=== PATIENT | female | born 1960 | race Caucasian/White ===

== ENCOUNTER → 2016-04-15 | Outpatient (CLI) | payer OTHER ==
[~2016-04-15] MED LIST: ADVIN25/60 INH; ALBUAER2 INH; BENZ100C18 PO; BENZ100C7 PO; LOSA100T65 PO; MULT-513 PO; OXYC1TAB3 PO; PRED20TA PO; PRED50TA PO; SNG10 PO; VNTHFA/IN INH
--- NOTE | 2016-04-15 14:36 | DIAGNOSTIC IMAGING REPORT ---
CHEST 2 VIEWS ROUTINE CLINICAL HISTORY: Pulmonary nodule COMPARISON STUDY: 02/01/2016 FINDINGS: The cardiac and mediastinal contours are normal. There is no evidence of focal pulmonary consolidation. There is no evidence of failure. No pleural effusions are visualized.[ The pulmonary nodules described on the prior CT scan are not visible on conventional radiographic imaging. IMPRESSION: No active disease in the chest. Electronically signed by: Marcello Basurto M.D. 04/15/2016 2:34 PM
== END | disposition home or self-care (01) ==
LOC: C.RAD 13:37
PROVIDERS: ATTEND Internal Medicine
DX: R91.1 Solitary pulmonary nodule (principal)

== ENCOUNTER 2016-12-17 17:45 | Emergency (ER) | payer OTHER ==
[~2016-12-17] VITALS: Ht 160 cm; Wt 98.9 kg
[~2016-12-17 17:45] MED LIST changes: -BENZ100C18 PO; -MULT-513 PO; -OXYC1TAB3 PO; -PRED20TA PO; -PRED50TA PO; -VNTHFA/IN INH
[2016-12-17 17:48] VITALS: TEMP 36.7; Ht 160 cm; Wt 98.9 kg
[2016-12-17] MEDS ORDERED: ALBUT/IPRATROP 3MG/0.5MG NEB 3 ML VIAL INH STA (17:54)
--- NOTE | 2016-12-17 18:14 | EMERGENCY ROOM VISIT NOTE ---
History First contact with patient: 17:54 Chief Complaint: SHORTNESS OF BREATH Stated Complaint: HARD TIME BREATHING History of Present Illness The patient is a 56 year old female who presents to the Emergency Room with complaints of shortness of breath and cough. Non productive cough for last 2 weeks, worse with lying flat. Tried using Vicks but appears to have made things worse. Taking Aleve without relief. Using albuterol 2puffs every 2 hours, doesn' t appear to be helping. Daughter is also sick with pneumonia. Chest pain (on her ribs) just during coughing spells. No recent plan, train or car journeys. Review of Systems see below Constitutional: + fever, + chills, + sweats (chornic night time), No weight loss Eyes: No worsening of vision Respiratory: No cough Cardiovascular: + chest pain (during couhging only), + orthopnea (coughing just during this episode), No PND, No edema, No claudication Abdomen: No pain, No nausea, No vomiting, No diarrhea, No constipation, No GI bleeding Musculoskeletal: No joint pain, No muscle pain, No swelling, No calf pain Genitourinary - Female: + dysuria (burning yesterday), No urinary frequency , No urinary urgency, No urinary incontinence, No urinary retention Hematologic / Lymphatic: No abnormal bleeding/bruising Integumentary: No rash, No itch Past Medical/Surgical History Medical Problems: (1) Bronchitis (2) Diverticulosis Colon (W/O Ment Of Hemorrhage) (3) Hypertension (4) Hypertension Nos (5) Obesity, Nos (6) Tobacco Use Disorder Family History Diabetes mellitus FH: heart disease FHx: cancer FHx: gallbladder disease Hypertension Kidney disease Kidney stones Social History Smoking Status: Current Every Day Smoker (2 pack/day) Alcohol Use: none Drug Use: none Marital Status: Occupation Status: employed Current/Historical Medications Scheduled Benzonatate (Tessalon Perles), 100 MG PO TID Fluticasone Prop/Salmeterol (Advair Diskus 250/50 60 Dose), 1 PUFF INH BID Losartan Potassium (Cozaar), 100 MG PO QAM Montelukast Sod (Montelukast Sodium), 10 MG PO QPM Multivitamins/Minerals (Mvi With Minerals), 1 TAB PO DAILY Prednisone (Prednisone), 50 MG PO DAILY Scheduled PRN Albuterol Hfa (Ventolin Hfa), 2 PUFFS INH Q4 PRN for SOB/Wheezing Benzonatate (Benzonatate), 100-200 MG PO Q4H PRN for Cough Physical Exam Vital Signs Date Time Temp Pulse Resp B/P (MAP) Pulse Ox O2 Delivery O2 Flow Rate FiO2 12/17/16 20:06 177/100 12/17/16 19:07 82 20 149/90 94 12/17/16 18:45 Room Air 12/17/16 17:48 36.7 88 22 194/96 96 Room Air Physical Exam GENERAL: Awake, alert, well-appearing, in moderate distress due to severe coughing. HENT: Normocephalic, atraumatic. Oropharynx unremarkable. EYES: Normal conjunctiva. Sclera non-icteric. NECK: Supple. No nuchal rigidity. FROM. No JVD. RESPIRATORY: Clear to auscultation. Decreased breath sounds bilaterally. CARDIAC: Regular rate, normal rhythm. Extremities warm and well perfused. Pulses equal. ABDOMEN: Soft, non-distended. No tenderness to palpation. No rebound or guarding. No masses. MUSCULOSKELETAL: Chest examination reveals no tenderness. The back is symmetrical on inspection without obvious abnormality. There is no CVA tenderness to palpation. No joint edema. LOWER EXTREMITIES: Calves are equal size bilaterally and non-tender. No edema. No discoloration. NEURO: Normal sensorium. No sensory or motor deficits noted. Medical Decision & Procedures ER Provider Diagnostic Interpretation: CHEST ONE VIEW PORTABLE HISTORY: shortness of breath COMPARISON: Chest 04/15/2016. FINDINGS: The lungs are clear. Cardiac silhouette is normal in size. No pleural effusions. No pneumothorax. IMPRESSION: No acute process. Laboratory Results 12/17/16 18:27 Red Blood Count 4.88, Mean Corpuscular Volume 87.9, Mean Corpuscular Hemoglobin 30.5, Mean Corpuscular Hemoglobin Concent 34.7, Mean Platelet Volume 10.9, Neutrophils (%) (Auto) 49.0, Lymphocytes (%) (Auto) 44.0, Monocytes (%) (Auto) 5.1, Eosinophils (%) (Auto) 1.4, Basophils (%) (Auto) 0.4, Neutrophils # (Auto) 3.58, Lymphocytes # (Auto) 3.22, Monocytes # (Auto) 0.37, Eosinophils # (Auto) 0.10, Basophils # (Auto) 0.03 12/17/16 18:27 Test 12/17/16 18:27 White Blood Count 7.31 K/uL (4.8-10.8) Red Blood Count 4.88 M/uL (4.2-5.4) Hemoglobin 14.9 g/dL (12.0-16.0) Hematocrit 42.9 % (37-47) Mean Corpuscular Volume 87.9 fL (80-100) Mean Corpuscular Hemoglobin 30.5 pg (25-34) Mean Corpuscular Hemoglobin Concent 34.7 g/dl (32-36) Platelet Count 194 K/uL (130-400) Mean Platelet Volume 10.9 fL (7.4-10.4) Neutrophils (%) (Auto) 49.0 % Lymphocytes (%) (Auto) 44.0 % Monocytes (%) (Auto) 5.1 % Eosinophils (%) (Auto) 1.4 % Basophils (%) (Auto) 0.4 % Neutrophils # (Auto) 3.58 K/uL (1.4-6.5) Lymphocytes # (Auto) 3.22 K/uL (1.2-3.4) Monocytes # (Auto) 0.37 K/uL (0.11-0.59) Eosinophils # (Auto) 0.10 K/uL (0-0.5) Basophils # (Auto) 0.03 K/uL (0-0.2) RDW Standard Deviation 44.7 fL (36.4-46.3) RDW Coefficient of Variation 13.9 % (11.5-14.5) Immature Granulocyte % (Auto) 0.1 % Immature Granulocyte # (Auto) 0.01 K/uL (0.00-0.02) D-Dimer 490 ug/L FEU (0-500) Anion Gap 5.0 mmol/L (3-11) Est Creatinine Clear Calc Drug Dose 81.9 ml/min Estimated GFR () 87.5 Estimated GFR (Non- 75.5 BUN/Creatinine Ratio 10.3 (10-20) Calcium Level 9.0 mg/dl (8.5-10.1) Troponin I < 0.015 ng/ml (0-0.045) Medications Administered Medications (Trade) Dose Ordered Sig/Jocelin Route Start Time Stop Time Status Last Admin Dose Admin Albuterol/ Ipratropium (Duoneb) 3 ml ONE STAT INH 12/17/16 17:54 12/17/16 17:57 DC 12/17/16 18:18 3 ML Albuterol Sulfate (Ventolin 0.083% 2.5MG/3ML Neb) 2.5 mg NOW STAT INH 12/17/16 18:41 12/17/16 18:43 DC 12/17/16 18:57 2.5 MG Prednisone (PredniSONE TAB) 40 mg NOW STAT PO 12/17/16 18:59 12/17/16 19:01 DC 12/17/16 19:10 40 MG Benzonatate (Tessalon Perles Cap) 100 mg NOW ONCE PO 12/17/16 19:15 12/17/16 19:16 DC 12/17/16 19:09 100 MG Hydrocodone Bit/ Homatropine Methylb (Hycodan Syrup) 5 ml NOW STAT PO 12/17/16 19:03 12/17/16 19:04 DC 12/17/16 19:09 5 ML ED Course 1800: full history and physical obtained by myself and Dr. sage 182: Discussed the case with dr. tatum who obtained his own h&p 190: reassessed by dr. sage 2014: patient ready to depart and cleared for discharge Medical Decision Prior records/ancillary studies reviewed. Triage Nursing notes reviewed. Additional history obtained from the family. The patient's history was concerning for respiratory difficulties. Differential diagnosis: Etiologies such as infections, reactive airway disease, pneumonia, pneumothorax , COPD, CHF, cardiac ischemia, pulmonary embolism, musculoskeletal, gastrointestinal, as well as others were entertained. Physical examination: As above. ER treatment provided: Duoneb x 2, prednisone 40 mg On reassessment the patient felt better. Diagnostic interpretation by me: The electrocardiogram was negative for acute ischemic or pathologic change. The labs revealed nothing abnormal aside from mildly decreased potassium of 3.1 Imaging studies: Chest x-ray as above, nothing abnormal detected. This appears to be consistent with exacerbation of asthma. By the evaluation outlined above emergent etiologies such as CHF, cardiac ischemia, pulmonary embolism, reactive airway disease, pneumonia, pneumothorax, musculoskeletal, serious bacterial infections, as well as others were deemed relatively unlikely. The patient and family were informed about the findings as listed above. All questions were answered and they are pleased with the treatment. Return instructions were outlined and the patient was discharged in stable condition. Outpatient prescription management: prednisone 50 mg daily for 5 days Tessalon perles 100 mg TIDx 10 days Referral: The patient was referred back to their primary care physician for follow-up in 2 to 3 days for a recheck of the current condition. Blood Pressure Screening Patient's blood pressure: Elevated blood pressure Impression Primary Impression: Asthma with exacerbation Departure Information Dispostion Home / Self-Care Condition GOOD Prescriptions Benzonatate (TESSALON PERLES) 100 Mg Cap 100 MG PO TID for coughing, #30 CAP Prov: Osvaldo Tatum, DO 12/17/16 Prednisone (PREDNISONE) 50 Mg Tab 50 MG PO DAILY for 5 Days, #5 TAB Prov: Osvaldo Tatum, DO 12/17/16 Referrals No Doctor, Assigned (PCP) Patient Instructions [facility] Resident Tracking Resident Involvement: Resident Care Provided Care Provided: Adult ED Problem Qualifiers Primary Impression: Asthma with exacerbation Asthma severity: moderate persistent Qualified Codes: J45.41 - Moderate persistent asthma with (acute) exacerbation
[2016-12-17 18:40] LABS: BASO % 0.4 %; BASO ABS # 0.03 K/uL (0-0.2); COMPLETE YES; EOS % 1.4 %; HEMATOCRIT 42.9 % (37-47); IG% 0.1 %; LYMPH ABS # 3.22 K/uL (1.2-3.4); MEAN CELL VOLUME 87.9 fL (80-100); MEAN CORPUSCULAR HEMOGLOBIN 30.5 pg (25-34); MEAN CORPUSCULAR HGB CONC 34.7 g/dl (32-36); MEAN PLATELET VOLUME 10.9 fL (7.4-10.4); MONO % 5.1 %; PLATELET COUNT 194 K/uL (130-400); RED BLOOD COUNT 4.88 M/uL (4.2-5.4); WHITE BLOOD COUNT 7.31 K/uL (4.8-10.8)
[2016-12-17] MEDS ORDERED: ALBUTEROL 0.083% NEBU SOLN 3 ML VIAL INH STA (18:41)
--- NOTE | 2016-12-17 18:51 | DIAGNOSTIC IMAGING REPORT ---
CHEST ONE VIEW PORTABLE HISTORY: shortness of breath COMPARISON: Chest 04/15/2016. FINDINGS: The lungs are clear. Cardiac silhouette is normal in size. No pleural effusions. No pneumothorax. IMPRESSION: No acute process. Electronically signed by: Nayan Obando M.D. 12/17/2016 6:49 PM Dictated Date/Time: 12/17/2016 6:39 PM
[2016-12-17 19:01] LABS: BUN/CREATININE RATIO 10.3 (10-20); CREATININE 0.86 mg/dl (0.60-1.20); POTASSIUM 3.1 mmol/L (3.5-5.1)
[2016-12-17] MEDS ORDERED: HYDROCODONE/HOMATROPINE SYRUP 5MG/1.5MG 5ML UDP PO STA (19:03)
[2016-12-17 19:07] VITALS: PULSE 82; O2SAT 94
[2016-12-17] MEDS ORDERED: VNTHFA/IN INH (19:11)
[2016-12-17] MEDS ORDERED: MULT-513 PO (19:15)
[2016-12-17] MEDS ORDERED: BENZONATATE 100MG CAP PO ONE (19:15)
[2016-12-17] MEDS ORDERED: BENZ100C18 PO (19:44)
[2016-12-17] MEDS ORDERED: PRED50TA PO (19:44)
[2016-12-17] MEDS ORDERED: PRED20TA PO (19:53)
[2016-12-17 20:06] VITALS: BP 177/100
--- NOTE | 2016-12-17 22:33 | EMERGENCY ROOM VISIT NOTE ---
History Report prepared by Alvina: Amy Koroma Under the Supervision of: Dr. Osvaldo Tatum D.O. First contact with patient: 17:54 Chief Complaint: SHORTNESS OF BREATH Stated Complaint: HARD TIME BREATHING History of Present Illness The patient is a 56 year old female who presents to the Emergency Room with complaints of persistent coughing for the past 2 weeks. Her cough is not productive. She has not seen her PCP for this. She has tried Vicks and her inhaler to no relief. She did have a sore throat after the coughing started which resolved. She has chest pain with coughing and right ear pain. She has been taking Aleve for pain. She has some wheezing at times. She denies any rhinorrhea, abdominal pain, nausea, vomiting, or diarrhea. She had 1 episode of dysuria. She has a history of asthma and hypertension. She does not have any history of COPD, heart disease, diabetes, or high cholesterol. She notes that her daughter had pneumonia recently and had the same exact symptoms. She had a PE which was thought to have been caused by her the medication she was taking after having a hysterectomy. She has stopped taking that medication. She is currently not on blood thinners. She is a smoker. Source of History: patient Onset: 2 weeks Position: other (global) Quality: other (cough) Timing: other (persistent) Associated Symptoms: + chest pain (with coughing), No nausea, No vomiting, No abdominal pain, No diarrhea Note: Pt reports right ear pain. Pt denies rhinorrhea. Review of Systems See HPI for pertinent positives & negatives. A total of 10 systems reviewed and were otherwise negative. Past Medical & Surgical Medical Problems: (1) Bronchitis (2) Diverticulosis Colon (W/O Ment Of Hemorrhage) (3) Hypertension (4) Hypertension Nos (5) Obesity, Nos (6) Tobacco Use Disorder Family History Diabetes mellitus FH: heart disease FHx: cancer FHx: gallbladder disease Hypertension Kidney disease Kidney stones Social History Smoking Status: Current Every Day Smoker (2 pack/day) Alcohol Use: none Drug Use: none Marital Status: Occupation Status: employed Current/Historical Medications Scheduled Benzonatate (Tessalon Perles), 100 MG PO TID Fluticasone Prop/Salmeterol (Advair Diskus 250/50 60 Dose), 1 PUFF INH BID Losartan Potassium (Cozaar), 100 MG PO QAM Montelukast Sod (Montelukast Sodium), 10 MG PO QPM Multivitamins/Minerals (Mvi With Minerals), 1 TAB PO DAILY Prednisone (Prednisone), 50 MG PO DAILY Scheduled PRN Albuterol Hfa (Ventolin Hfa), 2 PUFFS INH Q4 PRN for SOB/Wheezing Benzonatate (Benzonatate), 100-200 MG PO Q4H PRN for Cough Allergies Coded Allergies: Peanut (Verified Allergy, Intermediate, hives, 12/17/16) Physical Exam Vital Signs Date Time Temp Pulse Resp B/P (MAP) Pulse Ox O2 Delivery O2 Flow Rate FiO2 12/17/16 20:06 177/100 12/17/16 19:07 82 20 149/90 94 12/17/16 18:45 Room Air 12/17/16 17:48 36.7 88 22 194/96 96 Room Air Physical Exam GENERAL: sitting up in bed, no acute distress, nontoxic, talking in full sentences. EYE EXAM: normal conjunctiva OROPHARYNX: no exudate, no erythema, lips, buccal mucosa, and tongue normal and mucous membranes are moist NECK: supple, no nuchal rigidity, no adenopathy, non-tender, no JVD LUNGS: Faint wheezing bilaterally. Normal chest wall mechanics HEART: no murmurs, S1 normal and S2 normal ABDOMEN: abdomen soft, non-tender, normo-active bowel sounds, no masses, no rebound or guarding. BACK: Back is symmetrical on inspection and there is no deformity, no midline tenderness, no CVA tenderness. SKIN: no rashes and no bruising UPPER EXTREMITIES: upper extremities are grossly normal. LOWER EXTREMITIES: Calves equal bilaterally. NEURO EXAM: Normal sensorium, cranial nerves II-XII grossly intact, normal speech, no gross weakness of arms, no gross weakness of legs. Medical Decision & Procedures ER Provider Diagnostic Interpretation: Radiology results as stated below per my review and the radiologist's interpretation: CHEST ONE VIEW PORTABLE HISTORY: shortness of breath COMPARISON: Chest 04/15/2016. FINDINGS: The lungs are clear. Cardiac silhouette is normal in size. No pleural effusions. No pneumothorax. IMPRESSION: No acute process. Electronically signed by: Nayan Obando M.D. 12/17/2016 6:49 PM Dictated Date/Time: 12/17/2016 6:39 PM Laboratory Results 12/17/16 18:27 Red Blood Count 4.88, Mean Corpuscular Volume 87.9, Mean Corpuscular Hemoglobin 30.5, Mean Corpuscular Hemoglobin Concent 34.7, Mean Platelet Volume 10.9, Neutrophils (%) (Auto) 49.0, Lymphocytes (%) (Auto) 44.0, Monocytes (%) (Auto) 5.1, Eosinophils (%) (Auto) 1.4, Basophils (%) (Auto) 0.4, Neutrophils # (Auto) 3.58, Lymphocytes # (Auto) 3.22, Monocytes # (Auto) 0.37, Eosinophils # (Auto) 0.10, Basophils # (Auto) 0.03 12/17/16 18:27 Test 12/17/16 18:27 White Blood Count 7.31 K/uL (4.8-10.8) Red Blood Count 4.88 M/uL (4.2-5.4) Hemoglobin 14.9 g/dL (12.0-16.0) Hematocrit 42.9 % (37-47) Mean Corpuscular Volume 87.9 fL (80-100) Mean Corpuscular Hemoglobin 30.5 pg (25-34) Mean Corpuscular Hemoglobin Concent 34.7 g/dl (32-36) Platelet Count 194 K/uL (130-400) Mean Platelet Volume 10.9 fL (7.4-10.4) Neutrophils (%) (Auto) 49.0 % Lymphocytes (%) (Auto) 44.0 % Monocytes (%) (Auto) 5.1 % Eosinophils (%) (Auto) 1.4 % Basophils (%) (Auto) 0.4 % Neutrophils # (Auto) 3.58 K/uL (1.4-6.5) Lymphocytes # (Auto) 3.22 K/uL (1.2-3.4) Monocytes # (Auto) 0.37 K/uL (0.11-0.59) Eosinophils # (Auto) 0.10 K/uL (0-0.5) Basophils # (Auto) 0.03 K/uL (0-0.2) RDW Standard Deviation 44.7 fL (36.4-46.3) RDW Coefficient of Variation 13.9 % (11.5-14.5) Immature Granulocyte % (Auto) 0.1 % Immature Granulocyte # (Auto) 0.01 K/uL (0.00-0.02) D-Dimer 490 ug/L FEU (0-500) Anion Gap 5.0 mmol/L (3-11) Est Creatinine Clear Calc Drug Dose 81.9 ml/min Estimated GFR () 87.5 Estimated GFR (Non- 75.5 BUN/Creatinine Ratio 10.3 (10-20) Calcium Level 9.0 mg/dl (8.5-10.1) Troponin I < 0.015 ng/ml (0-0.045) Laboratory results per my review. Medications Administered Medications (Trade) Dose Ordered Sig/Jocelin Route Start Time Stop Time Status Last Admin Dose Admin Albuterol/ Ipratropium (Duoneb) 3 ml ONE STAT INH 12/17/16 17:54 12/17/16 17:57 DC 12/17/16 18:18 3 ML Albuterol Sulfate (Ventolin 0.083% 2.5MG/3ML Neb) 2.5 mg NOW STAT INH 12/17/16 18:41 12/17/16 18:43 DC 12/17/16 18:57 2.5 MG Prednisone (PredniSONE TAB) 40 mg NOW STAT PO 12/17/16 18:59 12/17/16 19:01 DC 12/17/16 19:10 40 MG Benzonatate (Tessalon Perles Cap) 100 mg NOW ONCE PO 12/17/16 19:15 12/17/16 19:16 DC 12/17/16 19:09 100 MG Hydrocodone Bit/ Homatropine Methylb (Hycodan Syrup) 5 ml NOW STAT PO 12/17/16 19:03 12/17/16 19:04 DC 12/17/16 19:09 5 ML ECG Indication: chest pain Rate (beats per minute): 82 Rhythm: sinus rhythm Findings: no ectopy, other (normal axis) ED Course ED COURSE: Vital signs were reviewed and showed hypertension. The patients medical record was reviewed The above diagnostic studies were performed and reviewed. ED treatments and interventions as stated above. 1754: Duoneb 3 ml INH. 1826: The patient was evaluated in room B4B. A complete history and physical examination was performed. 184: Albuterol Sulfate 2.5 mg INH. 1859: Prednisone 40 mg PO. 1903: Hycodan Syrup 5 ml PO. 1914: Tessalon Perles Cap 100 mg PO. 1940: Upon reevaluation, the patient is feeling better. I discussed my findings with the patient and she understands and agrees with the treatment plan. Based on the patients age, coexisting illnesses, exam and lab findings the decision to treat as an outpatient was made. The patient remained stable while under my care. The patient appeared well at the time of discharge. Medical Decision Differential diagnoses includes but is not limited to pneumonia, bronchitis, COPD/Asthma exacerbation, pneumothorax, pulmonary embolism, congestive heart failure, acute coronary syndrome Patient is a 56-year-old female with past medical history of asthma that presents with a 2 week history of a productive cough and a sore throat. She does have a history of asthma. She is a smoker. Has pain in her chest but only present with coughing. Also has a history of hypertension. CBC all BMP and troponin was negative. Troponin was negative with pain that has been present for greater than 24 hours. D-dimer was negative. She did have previous PEs but these were secondary to oral medications that she was taking at bedside. She has not been on any estrogen medications. Chest x-ray shows no focal infiltrate. EKG was unremarkable. She was given neb treatments with significant improvement of her pain. She was given steroids as well. Patient was seen in conjunction with resident but independently. Patient was feeling slightly better and was discharged follow-up with PCP. I do favor this is an exacerbation of her asthma secondary to a viral URI. Discussed with Pt concerning signs and symptoms to watch out for. Pt was instructed to follow up with their PCP and discussed with the patient their option to return to the ED at anytime for persistent or worsening symptoms. The appropriate anticipatory guidance and out-patient management, including indications for return to the emergency department, were explained at length to the patient and understood. Medication Reconcilliation Current Medication List: was personally reviewed by me Blood Pressure Screening Patient's blood pressure: Elevated blood pressure Blood pressure disposition: Elevated BP felt to be situational Impression Primary Impression: Asthma exacerbation Additional Impression: Bronchitis Scribe Attestation The scribe's documentation has been prepared under my direction and personally reviewed by me in its entirety. I confirm that the note above accurately reflects all work, treatment, procedures, and medical decision making performed by me. Departure Information Dispostion Home / Self-Care Prescriptions Benzonatate (TESSALON PERLES) 100 Mg Cap 100 MG PO TID for coughing, #30 CAP Prov: Osvaldo Tatum, DO 12/17/16 Prednisone (PREDNISONE) 50 Mg Tab 50 MG PO DAILY for 5 Days, #5 TAB Prov: Osvaldo Tatum, DO 12/17/16 Referrals Hany Dyer M.D. (PCP) Forms HOME CARE DOCUMENTATION FORM, IMPORTANT VISIT INFORMATION Patient Instructions Asthma - [facility], ED Bronchitis Asthmatic, My [facility] Additional Instructions Please follow up with your primary care doctor with in the next 24 hours. Any worsening of your symptoms, please return to the ED immediately. This includes any fevers greater than 100.4, chest pain, shortness breath, persistent nausea, vomiting, unable to eat or drink, or any other concerning signs or symptoms from your standpoint. Please take steroids as prescribed. Please use your inhalers as needed. Please follow up with your primary care doctor as you will likely benefit from a nebulizer. Problem Qualifiers
== END 2016-12-17 20:08 | disposition home or self-care (01) ==
LOC: C.EDB 17:47
DX: J45.909 Unspecified asthma, uncomplicated (principal); J40 Bronchitis, not specified as acute or chronic; K57.90 Diverticulosis of intestine, part unspecified, without perforation or abscess without bleeding; I10 Essential (primary) hypertension; E66.9 Obesity, unspecified; Z83.3 Family history of diabetes mellitus; Z82.49 Family history of ischemic heart disease and other diseases of the circulatory system; F17.200 Nicotine dependence, unspecified, uncomplicated

== ENCOUNTER → 2017-02-02 | Outpatient (CLI) | payer OTHER ==
[~2017-02-02] MED LIST changes: -ALBUAER2 INH; +MULT-513 PO; +VNTHFA/IN INH
--- NOTE | 2017-02-02 10:18 | DIAGNOSTIC IMAGING REPORT ---
(CHEST) THORAX WITHOUT CLINICAL HISTORY: R91.8 Pulmonary nodules COMPARISON STUDY: 02/01/2016 CT DOSE: 483.19 mGy.cm TECHNIQUE: CT of the thorax was performed from the thoracic inlet to the lung bases. Images are reviewed in the axial, sagittal, and coronal planes. IV contrast was not administered for this examination. A dose lowering technique was utilized adhering to the principles of ALARA. FINDINGS: Thyroid: Imaged portions of the thyroid gland are normal in appearance. Thoracic aorta: The thoracic aorta is normal in course and caliber, noting standard 3 vessel arch anatomy. Heart: The heart is normal in size and configuration, without pericardial effusion. Lungs and pleural spaces: No pleural effusions are visualized. There is a stable 1 cm pleural-based nodule within the right lower lobe as visualized in image #182/[id number]. There is a stable 6 mm right lower lobe pulmonary nodule as visualized in image #162/276. There is a persistent 2 mm right lower lobe pulmonary nodule as visualized in image #111/276. There is pulmonary emphysema. There are innumerable subtle bilateral groundglass nodules which were not clearly present on the preceding study. The distribution favors an infectious/inflammatory over neoplastic process. These measure up to 15 mm in diameter. Short-term CT follow-up is recommended. Mediastinum: There are enlarged mediastinal lymph nodes measuring up to 12 mm in short axis. Johana: There is no evidence of pathologic hilar adenopathy given the limitations of a noncontrast study Axilla: There is no evidence of pathologic axillary lymphadenopathy Upper abdomen: Partially visualized upper abdominal viscera is within normal limits. Skeletal structures: There are no lytic or blastic osseous lesions. IMPRESSION: 1. Persistent mild mediastinal lymphadenopathy 2. Stable solid right lung pulmonary nodules 3. Emphysema 4. Multiple new bilateral groundglass nodules. The distribution favors an infectious/inflammatory process over malignancy. A three-month follow-up CT scan is recommended. Please refer to below summary of Fleischner criteria recommendations for follow-up of incidental CT nodules (Tiffanie Kasper, Guidelines for management of small pulmonary nodules detected on CT scans: A statement from the Fleischner Society, Radiology 237: [phone].) SOLID NODULES Solitary nodule size: <6 mm * low risk patients: no follow-up needed * high risk patients: optional CT at 12 months Solitary nodule size: 6-8 mm * low risk patients: follow-up at 6-12 months, then consider further follow-up at 18-24 months * high risk patients: initial follow-up CT at 6-12 months and then at 18-24 months if no change Solitary nodule size: >8 mm * either low or high risk patients - consider follow-up CT at 3 months, and/or CT-PET, and/or biopsy Multiple nodules size: <6 mm * low risk patients: no routine follow-up * high risk patients: optional CT at 12 months Multiple nodules size: 6-8 mm * low risk patients: follow-up at 3-6 months, then consider further follow-up at 18-24 months * high risk patients: follow-up at 3-6 months, then at 18-24 months if no change Multiple nodules size: >8 mm * low risk patients: follow-up at 3-6 months, then consider further follow-up at 18-24 months * high risk patients: follow-up at 3-6 months, then at 18-24 months if no change Note: newly detected indeterminate nodule in persons 35 years of age or older. * low risk patients: minimal or absent history of smoking and/or other known risk factors * high risk patients: history of smoking or of other known risk factors (e.g. first degree relative with lung cancer, or exposure to asbestos, radon, uranium) * if a nodule up to 8 mm is partly solid or is ground glass further follow-up is required after 24 months to exclude possible slow growing adenocarcinoma ([facility]) SUBSOLID NODULES Solitary pure ground-glass nodule * nodule size <6 mm - no CT follow-up required * nodule size >=6 mm - follow-up CT at 6-12 months, then every 2 years until 5 years Solitary part-solid nodule * nodule size <6 mm - no CT follow-up required * nodule size >=6 mm - follow-up CT at 3-6 months. If unchanged, and solid component remains <6 mm, then annual follow-up for 5 years Multiple subsolid nodules * nodule size <6 mm - follow-up CT at 3-6 months, consider further follow-up at 2 and 4 years if stable * nodule size >=6 mm - follow-up CT at 3-6 months, subsequent management based on the most suspicious nodule(s) Electronically signed by: Marcello Basurto M.D. 02/02/2017 10:17 AM Dictated Date/Time: 02/02/2017 10:00 AM
== END | disposition home or self-care (01) ==
LOC: C.CTS 09:43
PROVIDERS: ATTEND Internal Medicine
DX: R91.8 Other nonspecific abnormal finding of lung field (principal); J43.9 Emphysema, unspecified

== ENCOUNTER → 2017-05-03 | Outpatient (CLI) | payer OTHER ==
--- NOTE | 2017-05-03 09:30 | DIAGNOSTIC IMAGING REPORT ---
(CHEST) THORAX WITHOUT CT DOSE: 593.62 mGy.cm HISTORY: Lung nodule. Follow-up. TECHNIQUE: Multiaxial CT images of the chest were performed without contrast. A dose lowering technique was utilized adhering to the principles of ALARA. COMPARISON: Chest CT 02/02/2017. FINDINGS: The central airways are patent. No pleural effusions. No pneumothorax. Emphysema is again noted. Stable 4 mm nodule within the right lung apex on image 38. Stable 11 mm nodular density within the right lower lobe on image 191. Stable 7 mm nodule within the right lower lobe on image 170. Stable 4 mm nodule within the right lower lobe on image 142. The groundglass airspace opacities seen within the lungs on the prior study have essentially resolved. No suspicious lytic or blastic osseous lesions. A few prominent] lymph nodes are partially visualized. Mild mediastinal lymphadenopathy remains unchanged. Dominant precarinal lymph node measures 12 mm in short axis diameter. The heart is normal in size. No pleural or pericardial effusions. Cholecystectomy. No hepatic or splenic masses. Gastric fundus diverticulum is again noted. Stable 2 cm nodule within the right adrenal gland. This is consistent with a benign adenoma. IMPRESSION: 1. Interval resolution of the scattered groundglass airspace opacities. 2. Slight increase in size in a few of the right pulmonary nodules as described above compared to the examination. Continued six-month chest CT follow-up is recommended to ensure stability.. 3. Emphysema. 4. Stable mild mediastinal and right supraclavicular lymphadenopathy. 5. Additional stable findings as described above. Electronically signed by: Nayan Obando M.D. 05/03/2017 9:29 AM Dictated Date/Time: 05/03/2017 8:49 AM
== END | disposition home or self-care (01) ==
LOC: C.CTS 08:29
PROVIDERS: ATTEND Internal Medicine
DX: R91.8 Other nonspecific abnormal finding of lung field (principal); J43.9 Emphysema, unspecified

== ENCOUNTER 2017-06-06 09:16 | Emergency (ER) | payer OTHER ==
[~2017-06-06] VITALS: Ht 157.5 cm; Wt 98.7 kg
[2017-06-06 09:21] VITALS: Ht 157.5 cm; Wt 98.7 kg
[2017-06-06 10:06] VITALS: O2SAT 98
[2017-06-06 10:07] LABS: INFLUENZA B ANTIGEN Neg for Influ B (NEG)
[2017-06-06 10:39] LABS: BASO % 0.6 %; BASO ABS # 0.02 K/uL (0-0.2); EOS % 1.7 %; EOS ABS # 0.06 K/uL (0-0.5); HEMATOCRIT 43.7 % (37-47); HEMOGLOBIN 15.3 g/dL (12.0-16.0); LYMPH % 43.9 %; LYMPH ABS # 1.57 K/uL (1.2-3.4); MEAN CELL VOLUME 88.3 fL (80-100); MEAN CORPUSCULAR HEMOGLOBIN 30.9 pg (25-34); MEAN PLATELET VOLUME 10.4 fL (7.4-10.4); MONO % 10.9 %; MONO ABS # 0.39 K/uL (0.11-0.59); NEUT % 42.9 %; NEUT ABS # 1.54 K/uL (1.4-6.5); PLATELET COUNT 136 K/uL (130-400); RED CELL DISTRIBUTION WIDTH CV 14.2 % (11.5-14.5); RED CELL DISTRIBUTION WIDTH SD 45.9 fL (36.4-46.3); WHITE BLOOD COUNT 3.58 K/uL (4.8-10.8)
--- NOTE | 2017-06-06 10:44 | DIAGNOSTIC IMAGING REPORT ---
CHEST ONE VIEW PORTABLE CLINICAL HISTORY: Atypical chest pain COMPARISON STUDY: 12/17/2016 FINDINGS: The cardiac and mediastinal contours are normal. There is no evidence of focal pulmonary consolidation. There is no evidence of failure. No pleural effusions are visualized.[ IMPRESSION: No active disease in the chest. Electronically signed by: Marcello Basurto M.D. 06/06/2017 10:42 AM Dictated Date/Time: 06/06/2017 10:42 AM
[2017-06-06 10:50] LABS: PTT PATIENT 26.4 SECONDS (21.0-31.0)
[2017-06-06 10:54] LABS: ALBUMIN 3.4 gm/dl (3.4-5.0); ALT/SGPT 35 U/L (12-78); BLOOD UREA NITROGEN 8 mg/dl (7-18); CALCIUM 8.6 mg/dl (8.5-10.1); CARBON DIOXIDE 29 mmol/L (21-32); CREATININE 0.84 mg/dl (0.60-1.20); GLUCOSE 102 mg/dl (70-99); LIPASE 143 U/L (73-393); POTASSIUM 3.6 mmol/L (3.5-5.1); SODIUM 140 mmol/L (136-145)
[2017-06-06 10:57] LABS: ALKALINE PHOSPHATASE 129 U/L (45-117); AST/SGOT 27 U/L (15-37)
[2017-06-06] MEDS ORDERED: OPTIRAY 320 IV PRN (11:00)
--- NOTE | 2017-06-06 11:22 | DIAGNOSTIC IMAGING REPORT ---
CT ANGIOGRAM OF THE CHEST CLINICAL HISTORY: Cough, chest pain COMPARISON STUDY: CT scan the chest dated 05/03/2017, chest x-ray dated June 06, 2017 TECHNIQUE: Following the IV administration of 95 mL of Optiray-320, CT angiogram of the thorax was performed from the thoracic inlet to the lung bases utilizing the pulmonary embolus protocol. Images are reviewed in the axial, sagittal, and coronal planes. IV contrast was administered without complication. MIP imaging was performed. A dose lowering technique was utilized adhering to the principles of ALARA. CT DOSE: 585.06 mGy.cm FINDINGS: Images the upper abdomen reveal mild hepatic steatosis. There is a stable right adrenal adenoma. There is a posterior gastric diverticulum. There are clustered mildly enlarged AP window lymph nodes and right paratracheal lymph nodes. There was no evidence of thoracic aortic dilatation. There were no pulmonary artery filling defects to indicate acute pulmonary embolism. No pleural effusions are visualized. There is mild lower lobe bronchial wall thickening. There is a stable right lower lobe pleural-based 12 mm nodule. There is a stable 7 mm right lower lobe pulmonary nodule. There is a stable 4 mm right upper lobe pulmonary nodule. There is a stable 3 mm right lower lobe pulmonary nodule. There is underlying pulmonary emphysema. IMPRESSION: 1. No evidence of pulmonary embolism 2. Emphysema 3. Stable mediastinal lymphadenopathy 4. Stable right lung pulmonary nodules Electronically signed by: Marcello Basurto M.D. 06/06/2017 11:21 AM Dictated Date/Time: 06/06/2017 11:14 AM
[2017-06-06] MEDS ORDERED: AZITHROMYCIN 250 MG TAB PO ONE (12:15)
[2017-06-06] MEDS ORDERED: PRED50TA PO (12:18)
[2017-06-06] MEDS ORDERED: AZITTAB PO (12:18)
[2017-06-06 12:35] VITALS: BP 169/88; PULSE 80; O2SAT 95
--- NOTE | 2017-06-06 17:47 | EMERGENCY ROOM VISIT NOTE ---
History Report prepared by Alvina: Cuong Perrin Under the Supervision of: Dr. Hugo Jo M.D. First contact with patient: 09:43 Chief Complaint: SHORTNESS OF BREATH Stated Complaint: HARD BREATHING, LUNGS Nursing Triage Summary: pt c/o "lung pain, started with sinus dripping inward and then everything around it tightened up" Symptoms started Wednesday. Cough, non productive. History of Present Illness The patient is a 56 year old female who presents to the Emergency Room with complaints of a nonproductive cough that started 5 days ago. She states she had post nasal drip that caused her cough. She has a history significant for blood clots in her lungs. She states she had minimal improvement with her inhaler. She reports she had low grade fevers and SOB. The patient denies trauma, falls, calf tenderness, pain and swelling in her legs, and nausea. Source of History: patient Onset: 5 days ago Position: other (global) Timing: constant Associated Symptoms: + cough, + SOB, No nausea Note: The patient has had minimal improvement with her inhaler. The patient denies trauma, falls, calf tenderness, and pain and swelling in her legs. Review of Systems See HPI for pertinent positives & negatives. A total of 10 systems reviewed and were otherwise negative. Past Medical & Surgical Medical Problems: (1) Bronchitis (2) Diverticulosis Colon (W/O Ment Of Hemorrhage) (3) Hypertension (4) Hypertension Nos (5) Obesity, Nos (6) Tobacco Use Disorder Old medical records were reviewed. Nurse's notes were reviewed and I agree with. Family History Diabetes mellitus FH: heart disease FHx: cancer FHx: gallbladder disease Hypertension Kidney disease Kidney stones Social History Smoking Status: Current Every Day Smoker Alcohol Use: none Drug Use: none Marital Status: Occupation Status: employed Current/Historical Medications Scheduled Azithromycin (Zithromax Z-Cade), 0 PO UD Fluticasone Prop/Salmeterol (Advair Diskus 250/50 60 Dose), 1 PUFF INH BID Losartan Potassium (Cozaar), 100 MG PO QAM Montelukast Sod (Montelukast Sodium), 10 MG PO QPM Multivitamins/Minerals (Mvi With Minerals), 1 TAB PO DAILY Prednisone (Prednisone), 50 MG PO DAILY Scheduled PRN Albuterol Hfa (Ventolin Hfa), 2 PUFFS INH Q4 PRN for SOB/Wheezing Allergies Coded Allergies: Peanut (Verified Allergy, Intermediate, hives, 06/06/17) Physical Exam Vital Signs Date Time Temp Pulse Resp B/P (MAP) Pulse Ox O2 Delivery O2 Flow Rate FiO2 06/06/17 12:35 80 18 169/88 95 06/06/17 11:39 77 18 178/91 93 Room Air 06/06/17 11:04 81 06/06/17 10:19 81 18 146/95 96 Room Air 06/06/17 10:06 98 Room Air 06/06/17 09:21 93 Room Air 06/06/17 09:21 36.9 88 18 163/100 93 Room Air Physical Exam General: Non-ill appearing middle aged female in no acute distress. HEENT: Normal cephalic atraumatic. Pupils are equal round and reactive to light. Extraocular movements are intact. Oropharynx is pink with moist mucous membranes. No swelling of the mouth lips or tongue. Neck: Supple with a midline trachea. No meningeal signs or stiffness, no JVD or bruits. No Stridor. Chest: Clear to auscultation bilaterally. No wheezes or rhonchi. No increased work of breathing. Heart: regular rate and rhythm. Abdomen: Soft nontender, nondistended without rebound guarding or rigidity. Extremities: No cyanosis clubbing or edema. No calf tenderness or assymetry Spine/Back. Non tender to palpation. No CVA tenderness Skin: Good turgor without rashes. Neurologic exam: Cranial nerves two through 12 are intact. Motor and sensation are intact and symmetrical throughout. Medical Decision & Procedures ER Provider Diagnostic Interpretation: Radiology results as stated below per my review and radiologist interpretation: CHEST ONE VIEW PORTABLE CLINICAL HISTORY: Atypical chest pain COMPARISON STUDY: 12/17/2016 FINDINGS: The cardiac and mediastinal contours are normal. There is no evidence of focal pulmonary consolidation. There is no evidence of failure. No pleural effusions are visualized.[ IMPRESSION: No active disease in the chest. Electronically signed by: Marcello Basurto M.D. 06/06/2017 10:42 AM Dictated Date/Time: 06/06/2017 10:[address] ANGIOGRAM OF THE CHEST CLINICAL HISTORY: Cough, chest pain COMPARISON STUDY: CT scan the chest dated 05/03/2017, chest x-ray dated June 06, 2017 TECHNIQUE: Following the IV administration of 95 mL of Optiray-320, CT angiogram of the thorax was performed from the thoracic inlet to the lung bases utilizing the pulmonary embolus protocol. Images are reviewed in the axial, sagittal, and coronal planes. IV contrast was administered without complication. MIP imaging was performed. A dose lowering technique was utilized adhering to the principles of ALARA. CT DOSE: 585.06 mGy.cm FINDINGS: Images the upper abdomen reveal mild hepatic steatosis. There is a stable right adrenal adenoma. There is a posterior gastric diverticulum. There are clustered mildly enlarged AP window lymph nodes and right paratracheal lymph nodes. There was no evidence of thoracic aortic dilatation. There were no pulmonary artery filling defects to indicate acute pulmonary embolism. No pleural effusions are visualized. There is mild lower lobe bronchial wall thickening. There is a stable right lower lobe pleural-based 12 mm nodule. There is a stable 7 mm right lower lobe pulmonary nodule. There is a stable 4 mm right upper lobe pulmonary nodule. There is a stable 3 mm right lower lobe pulmonary nodule. There is underlying pulmonary emphysema. IMPRESSION: 1. No evidence of pulmonary embolism 2. Emphysema 3. Stable mediastinal lymphadenopathy 4. Stable right lung pulmonary nodules Electronically signed by: Marcello Basurto M.D. 06/06/2017 11:21 AM Dictated Date/Time: 06/06/2017 11:14 AM Laboratory Results 06/06/17 10:30 Red Blood Count 4.95, Mean Corpuscular Volume 88.3, Mean Corpuscular Hemoglobin 30.9, Mean Corpuscular Hemoglobin Concent 35.0, Mean Platelet Volume 10.4, Neutrophils (%) (Auto) 42.9, Lymphocytes (%) (Auto) 43.9, Monocytes (%) (Auto) 10.9, Eosinophils (%) (Auto) 1.7, Basophils (%) (Auto) 0.6, Neutrophils # (Auto ) 1.54, Lymphocytes # (Auto) 1.57, Monocytes # (Auto) 0.39, Eosinophils # (Auto ) 0.06, Basophils # (Auto) 0.02 06/06/17 10:30 Test 06/06/17 09:30 06/06/17 10:30 Influenza Type A Antigen Neg for Influ A (NEG) Influenza Type B Antigen Neg for Influ B (NEG) White Blood Count 3.58 K/uL (4.8-10.8) Red Blood Count 4.95 M/uL (4.2-5.4) Hemoglobin 15.3 g/dL (12.0-16.0) Hematocrit 43.7 % (37-47) Mean Corpuscular Volume 88.3 fL (80-100) Mean Corpuscular Hemoglobin 30.9 pg (25-34) Mean Corpuscular Hemoglobin Concent 35.0 g/dl (32-36) Platelet Count 136 K/uL (130-400) Mean Platelet Volume 10.4 fL (7.4-10.4) Neutrophils (%) (Auto) 42.9 % Lymphocytes (%) (Auto) 43.9 % Monocytes (%) (Auto) 10.9 % Eosinophils (%) (Auto) 1.7 % Basophils (%) (Auto) 0.6 % Neutrophils # (Auto) 1.54 K/uL (1.4-6.5) Lymphocytes # (Auto) 1.57 K/uL (1.2-3.4) Monocytes # (Auto) 0.39 K/uL (0.11-0.59) Eosinophils # (Auto) 0.06 K/uL (0-0.5) Basophils # (Auto) 0.02 K/uL (0-0.2) RDW Standard Deviation 45.9 fL (36.4-46.3) RDW Coefficient of Variation 14.2 % (11.5-14.5) Immature Granulocyte % (Auto) 0.0 % Immature Granulocyte # (Auto) 0.00 K/uL (0.00-0.02) Prothrombin Time 10.0 SECONDS (9.0-12.0) Prothromb Time International Ratio 1.0 (0.9-1.1) Activated Partial Thromboplast Time 26.4 SECONDS (21.0-31.0) Partial Thromboplastin Ratio 1.0 D-Dimer 720 ug/L FEU (0-500) Anion Gap 6.0 mmol/L (3-11) Est Creatinine Clear Calc Drug Dose 82.1 ml/min Estimated GFR () 90.0 Estimated GFR (Non- 77.7 BUN/Creatinine Ratio 9.7 (10-20) Calcium Level 8.6 mg/dl (8.5-10.1) Total Bilirubin 0.3 mg/dl (0.2-1) Direct Bilirubin < 0.1 mg/dl (0-0.2) Aspartate Amino Transf (AST/SGOT) 27 U/L (15-37) Alanine Aminotransferase (ALT/SGPT) 35 U/L (12-78) Alkaline Phosphatase 129 U/L (45-117) Bedside Troponin I < 0.030 ng/ml (0-0.045) Total Protein 7.0 gm/dl (6.4-8.2) Albumin 3.4 gm/dl (3.4-5.0) Lipase 143 U/L (73-393) Laboratory studies as stated above per my review. Medications Administered Medications (Trade) Dose Ordered Sig/Jocelin Route Start Time Stop Time Status Last Admin Dose Admin Azithromycin (Zithromax Tab) 500 mg NOW ONCE PO 06/06/17 12:15 06/06/17 12:16 DC 06/06/17 12:26 500 MG Prednisone (PredniSONE TAB) 60 mg NOW STAT PO 06/06/17 12:09 06/06/17 12:10 DC 06/06/17 12:26 60 MG ECG Per My Interpretation Indication: SOB/dyspnea Rate (beats per minute): 80 Rhythm: normal sinus Findings: no acute ischemic change, no ectopy, other (Normal interval) Change: no significant change (12/17/2016) ED Course 0943: Past medical records reviewed. The patient was evaluated in room A11, and a complete history and physical examination were performed. 1051: I checked on the patient's dimer and it was elevated. 1107: I checked on the patient and she is doing well. She agrees to a CT scan. 1207: Upon reevaluation, the patient is doing well. I discussed the results and treatment plan with her. The patient verbalized agreement of the treatment plan. The patient was discharged home. 1209: Prednisone Tab, 60 mg, PO; Zithromax Tab, 500 mg, PO. Medical Decision Differential diagnoses includes: influenza, bronchitis, pneumonia, pulmonary embolism, cardiac disease, electrolytic and metabolic abnormality. This patient comes in as described above. She was placed in room A11. She is here for treatment and evaluation of cough and shortness of breath. Start with a postnasal drip. She does have a history of asthma. She looks well on exam and is not hypoxic and nontoxic. Lungs are clear. She does have a remote history of a PE several years ago as well which she says was attributed to her being on estrogen. IV access established, influenza swab was obtained and was negative. The symptoms been going on for several days and she would likely be out of the window of benefit with Tamiflu regardless. Chest x-ray was unremarkable and clear. EKG does not suggest acute coronary syndrome or arrhythmia. She has no significant electrolyte or metabolic abnormality. Her d -dimer is mildly elevated in light of this, I did do a chest CT there is no evidence of PE or other pathology. I think she does not most likely of a bronchitis I will start azithromycin Z-Cade the first dose was given here as well as prescription given the fact that she also has an asthmatic history although she is not wheezing here I will start her on prednisone as well. She is given 60 mg p.o. as well as a prescription for 50 mg a day for the next 4 days. She should rest and drink plenty of fluids. Return if worsening of symptoms, fever or chills, any new problems or concerns Medication Reconcilliation Current Medication List: was personally reviewed by me Blood Pressure Screening Patient's blood pressure: Elevated blood pressure Blood pressure disposition: Elevated BP felt to be situational Impression Primary Impression: Bronchitis Additional Impression: COPD exacerbation Scribe Attestation The scribe's documentation has been prepared under my direction and personally reviewed by me in its entirety. I confirm that the note above accurately reflects all work, treatment, procedures, and medical decision making performed by me. Departure Information Dispostion Home / Self-Care Prescriptions Prednisone (Prednisone) 50 Mg Tab 50 MG PO DAILY, #4 TAB Prov: Hugo Jo M.D. 06/06/17 Azithromycin (ZITHROMAX Z-CADE) 250 Mg Tab 0 PO UD, #1 PKT Prov: Hugo Jo M.D. 06/06/17 Referrals Hany Dyer M.D. (PCP) Forms HOME CARE DOCUMENTATION FORM, IMPORTANT VISIT INFORMATION Patient Instructions My [facility] Additional Instructions Rest. Drink plenty of fluids. Return if: Increasing or change in pain, worsening of symptoms, shortness of breath, fever or chills, any new problems or concerns Uses Azithromycin Z-Cade as directedantibiotic Use prednisone 50 mg a day for the next 4 days Follow-up with your doctor in 1-2 days for recheck Problem Qualifiers
== END 2017-06-06 12:35 | disposition home or self-care (01) ==
LOC: C.EDB 09:17 → C.EDA 12:35
DX: J44.0 Chronic obstructive pulmonary disease with (acute) lower respiratory infection (principal); F17.200 Nicotine dependence, unspecified, uncomplicated; Z79.899 Other long term (current) drug therapy; Z91.010 Allergy to peanuts; I10 Essential (primary) hypertension

== ENCOUNTER → 2017-11-08 | Outpatient (CLI) | payer OTHER ==
[~2017-11-08] MED LIST changes: -BENZ100C7 PO; +PRED50TA PO
--- NOTE | 2017-11-08 09:16 | DIAGNOSTIC IMAGING REPORT ---
(CHEST) THORAX WITHOUT CLINICAL HISTORY: Pulmonary nodule COMPARISON STUDY: June 06, 2017 CT DOSE: 592.27 mGycm TECHNIQUE: CT of the thorax was performed from the thoracic inlet to the lung bases. Images are reviewed in the axial, sagittal, and coronal planes. IV contrast was not administered for this examination. A dose lowering technique was utilized adhering to the principles of ALARA. FINDINGS: Thyroid: Imaged portions of the thyroid gland are normal in appearance. Thoracic aorta: The thoracic aorta is normal in course and caliber, noting standard 3 vessel arch anatomy. Heart: The heart is normal in size and configuration, without pericardial effusion. Lungs and pleural spaces: There is pulmonary emphysema. There is no focal pulmonary consolidation. There is a stable 12 mm right lower lobe pleural-based nodule. There is a stable 7 mm right lower lobe pulmonary nodule. There is a stable 3 mm right lower lobe pulmonary nodule. There is a stable 4 mm right apical pulmonary nodule. Mediastinum: Mildly enlarged mediastinal lymph nodes remain stable. Johana: There is no evidence of pathologic hilar adenopathy given the limitations of a noncontrast study Axilla: There is no evidence of pathologic axillary lymphadenopathy Upper abdomen: There is hepatic steatosis. There is a posterior gastric diverticulum. There are stable right breast circumscribed nodules. Skeletal structures: There are no lytic or blastic osseous lesions. IMPRESSION: 1. Stable right lung pulmonary nodules 2. Stable mediastinal lymphadenopathy 3. Emphysema Electronically signed by: Marcello Basurto M.D. 11/08/2017 9:15 AM Dictated Date/Time: 11/08/2017 9:05 AM
== END | disposition home or self-care (01) ==
LOC: C.CTS 08:28
PROVIDERS: ATTEND Internal Medicine
DX: R91.8 Other nonspecific abnormal finding of lung field (principal); R59.0 Localized enlarged lymph nodes; J43.9 Emphysema, unspecified